=== PATIENT | male | born 1955 | race Caucasian/White ===

== ENCOUNTER 2018-01-11 08:14 | Outpatient (CLI) | payer BC ==
[2018-01-11 09:18] LABS: Hemoglobin 14.9 g/dL (14.0-18.0); Mean Corpuscular HGB CONC 34.4 g/dL (32.0-36.0); Mean Corpuscular Hemoglobin 32.3 pg (27.0-31.0); Mean Platelet Volume 8.3 fL (7.4-10.4); Platelet Count 171 thou/uL (130-400); RBC Distribution Width 11.5 % (11.5-14.5); Red Blood Cell (RBC) Count 4.62 mill/uL (4.70-6.10); White Blood Cell (WBC) Count 5.8 thou/uL (4.8-10.8)
[2018-01-11 09:35] LABS: Anion Gap 12 mmol/L (10-20); BUN (Urea Nitrogen) 17 mg/dL (8.4-25.7); Calc. Creatinine Clearance 0 mL/min (70-130); Calcium 9.6 mg/dL (7.8-10.44); Carbon Dioxide 27 mmol/L (23-31); Chloride 106 mmol/L (98-107); Estimated GFR-MDRD 81; Glucose 122 mg/dL (80-115); Potassium 4.2 mmol/L (3.5-5.1); Sodium 141 mmol/L (136-145)
== END 2018-01-11 08:15 | disposition home or self-care (01) ==
LOC: LABBT 08:14
PROVIDERS: ATTEND Surgery
DX: Z01.818 Encounter for other preprocedural examination (principal); K42.9 Umbilical hernia without obstruction or gangrene
CPT/HCPCS: 80048; 85027; 93005; 93010

== ENCOUNTER 2018-01-12 09:29 | Day surgery (SDC) | payer BC ==
[2018-01-11 08:35] VITALS: BMI 25.0
[2018-01-12] MEDS ORDERED: cefOXitin 2 GM VIAL ONE (11:44)
[2018-01-12] MEDS ORDERED: Sodium Chloride 0.9% 100 ML ONE (11:45)
[2018-01-12] MEDS ORDERED: Midazolam HCl 2 mg/2 ml Vial ONE ×2 (11:48→12:08)
[2018-01-12] MEDS ORDERED: Bupivacaine/Epinephrine 0.25% 30 ML VIAL ONE (12:03)
[2018-01-12] MEDS ORDERED: Fentanyl 250 MCG/5 ML VIAL ONE (12:08)
[2018-01-12] MEDS ORDERED: HYDROcodone/Acetaminophen 5/325 mg Tablet ONE (15:05)
--- NOTE | 2018-01-13 20:14 | OP ---
DATE OF PROCEDURE: 01/12/2018 PREOPERATIVE DIAGNOSIS: Umbilical hernia. POSTOPERATIVE DIAGNOSIS: Umbilical hernia. PROCEDURE: Umbilical hernia repair with mesh, Ventralex 4 cm. SURGEON: Adi Mccray M.D. ESTIMATED BLOOD LOSS: Minimal. COMPLICATIONS: None. SPECIMEN: None. TECHNIQUE: The patient was taken to the operating room, placed supine on the table. After general a nesthetic was obtained, the abdomen was shaved, prepped, and draped in a sterile fashion. Curved inc ision was made below the umbilicus. Cautery was used to dissect down to and the umbilical stalk was amputated exposing umbilical defect. The edges of the defect were freshened. The preperitoneal spac e was bluntly dissected through the defect. The small Ventralex 4 cm mesh brought into the sterile f ield, placed in the abdominal cavity through the defect. The tails of the mesh were sewn to the late ral gore using U stitch of Prolene and mesh was sewn superiorly and inferiorly using U stitch of Pro sheila as well. The tails were then cut at the level of the fascia. The wound was irrigated. The fas ervin was closed loosely over the mesh. The wound was irrigated. Local anesthetic was applied. The u mbilical skin was tacked back down using 3-0 Vicryl, and the skin was closed using running 4-0 Monocr yl and Dermabond. The patient went to recovery in stable condition. All instrument counts, needle c ounts, lap counts were correct.
== END 2018-01-12 15:35 | disposition home or self-care (01) ==
LOC: SDC 09:29
PROVIDERS: ATTEND Surgery
PROC: 0WUF0JZ Supplement Abdominal Wall with Synthetic Substitute, Open Approach (ICD-10-PCS; principal; 2018-01-12)
DX: K42.9 Umbilical hernia without obstruction or gangrene (principal); Z79.899 Other long term (current) drug therapy; Z87.891 Personal history of nicotine dependence; Z88.0 Allergy status to penicillin
CPT/HCPCS: J0694; J2250; J3010; J7050